=== PATIENT | male | born 1995 | race African-American/Black ===

== ENCOUNTER 2018-01-03 22:27 | Emergency (ER) | payer OTHER ==
[~2018-01-03] VITALS: Ht 170.2 cm; Wt 70.3 kg
[2018-01-04 02:49] VITALS: BP 138/80
== END 2018-01-04 02:50 ==
LOC: EME 22:27
PROC: 0RSJXZZ Reposition Right Shoulder Joint, External Approach (ICD-10-PCS; principal; 2018-01-03)
DX: S43.004A Unspecified dislocation of right shoulder joint, initial encounter (principal); Y93.67 Activity, basketball; Y92.147 Courtyard of prison as the place of occurrence of the external cause
CPT/HCPCS: 73030; 99281; 99285; J3010; J7030